=== PATIENT | female | born 1980 ===

== ENCOUNTER 2023-06-28 05:45 | Day surgery (SDC) | payer OTHER ==
[~2023-06-28 05:45] MED LIST: TOPROL XL25 M1 PO
== END 2023-06-28 17:55 | disposition home or self-care (01) ==
LOC: CIR.AMB 05:45
PROVIDERS: ATTEND Plastic Surgery Surgery of the Hand
DX: N62 Hypertrophy of breast (principal); Z88.0 Allergy status to penicillin; Z20.822 Contact with and (suspected) exposure to COVID-19